=== PATIENT | female | born 1990 | race Caucasian/White ===

== ENCOUNTER 2017-08-30 11:28 | Inpatient (IN) | payer BC ==
[2017-08-31] MEDS ORDERED: Cervidil 10 MG VAG SCH (00:01)
[2017-08-31] MEDS ORDERED: BRETHINE 1 MG/ML SQ PRN (00:01)
[2017-08-31] MEDS ORDERED: Lactated Ringers 1,000 ML IV SCH (02:00)
[2017-08-31] MEDS: Cervidil 10 MG VAG SCH ×2 (02:18→04:17)
[2017-08-31] MEDS ORDERED: TYLENOL EXTRA STRENGTH 500 MG PO PRN (05:08)
[2017-08-31] MEDS ORDERED: PITOCIN 30 UNITS/ LR 500 ML 500 ML IV SCH (05:30)
[2017-08-31 06:30] LABS: BASOPHIL % 0.2 % (0.0-0.4); Basophil (Absolute #) 0.02 (0-0.4); Eosinophil (Absolute #) 0.11 (0-0.5); Granulocyte Absolute (ANC) 7.38 (1.4-6.9); Granulocytes % 68.1 % (36.0-66.0); Hematocrit 39.4 % (35-47); Hemoglobin 12.8 gm/dl (12.0-16.0); Lymphocyte (Absolute #) 2.49 (1.0-4.6); Mean Cell Volume 92.7 fl (78-100); Mean Corpuscular Hemoglobin 30.1 pg (26-32); Mean Corpuscular Hgb Concent. 32.5 g/dl (32-36); Mean Platelet Volume 12.4 fl (6-9.5); Monocyte (Absolute #) 0.84 (0.0-1.3); Monocytes % 7.7 % (0.0-12.0); Platelet Count 216 K/mm3 (150-450); Red Blood Count 4.25 M/mm3 (4.1-5.4); Red Cell Distribution Width 13.3 % (11.5-14.0); White Blood Count 10.8 K/mm3 (4.0-10.5)
[2017-08-31 06:47] LABS: Amphetamine,Urine NEGATIVE (NEGATIVE); Barbiturate,Urine NEGATIVE (NEGATIVE); Benzodiazepine,Urine NEGATIVE (NEGATIVE); Cocaine,Urine NEGATIVE (NEGATIVE); Methadone,Urine NEGATIVE (NEGATIVE); Opiate,Urine NEGATIVE (NEGATIVE); PCP,Urine NEGATIVE (NEGATIVE); THC,Urine NEGATIVE (NEGATIVE)
[2017-08-31 09:44] LABS: Appearance CLOUDY (CLEAR); Bacteria MODERATE /HPF (NEGATIVE); Bilirubin NEGATIVE (NEGATIVE); Blood NEGATIVE Ery/ul (0-5); Epithelial Cells FEW /HPF (FEW); Glucose NEGATIVE (NEGATIVE); Ketones NEGATIVE (NEGATIVE); Leukocyte Esterase 2+ (NEGATIVE); Nitrite NEGATIVE (NEGATIVE); Protein,Urine Dip NEGATIVE (Negative); RBC 0-2 /HPF (0-2); Urobilinogen NORMAL mg/dL (0-1)
[2017-08-31] MEDS ORDERED: NON-FORMULARY ITEM (Prenatal Vits W-Ca,Fe,Fa(<1mg) [Prenatal] 1 EACH) PO SCH (10:00)
[2017-08-31] MEDS ORDERED: ACYCLOVIR 400 MG PO SCH (10:00)
[2017-08-31] MEDS: Lactated Ringers 1,000 ML IV SCH ×2 (15:34→23:17)
[2017-08-31] MEDS: ZOVIRAX 200 MG PO SCH ×2 (20:36→20:38)
[2017-08-31] MEDS ORDERED: Lactated Ringers 1,000 ML IV ONE (20:38)
[2017-08-31] MEDS ORDERED: Ephedrine Sulfate 50 MG/ML IV PRN (20:38)
[2017-08-31] MEDS: OB EPIDURAL NAROPIN/SUFENTANIL IN NACL EPIDURAL PRN (21:55)
[2017-09-01] MEDS: Lactated Ringers 1,000 ML IV SCH ×2 (02:00→10:03)
[2017-09-01 05:17] VITALS: O2SAT 96
[2017-09-01] MEDS: OB EPIDURAL NAROPIN/SUFENTANIL IN NACL EPIDURAL PRN (05:51)
[2017-09-01] MEDS ORDERED: XYLOCAINE 1% HCL 20 ML MDV IJ PRN (07:35)
[2017-09-01] MEDS ORDERED: NORCO 5/325 MG PO PRN (11:21)
[2017-09-01] MEDS ORDERED: TUCKS TP PRN (11:21)
[2017-09-01] MEDS ORDERED: Dermoplast Spray TP PRN (11:21)
[2017-09-01] MEDS: ZOVIRAX 200 MG PO SCH (11:27)
[2017-09-01] MEDS: THERAGRAN MULTIVITAMIN PO SCH (11:27)
[2017-09-01] MEDS: KEFLEX 500 MG PO SCH ×2 (13:12→17:26)
[2017-09-01] MEDS ORDERED: ROCEPHIN 1 Gm-D5w 50 ml Bag** 1 G/50 ML IVPB IV ONE (15:30)
[2017-09-02] MEDS: KEFLEX 500 MG PO SCH ×5 (00:25→21:16)
[2017-09-02] MEDS: Colace 100 MG PO SCH ×3 (00:25→21:16)
[2017-09-02] MEDS: MOTRIN 400 MG PO PRN ×3 (04:28→21:16)
[2017-09-02 05:39] LABS: BASOPHIL % 0.1 % (0.0-0.4); Basophil (Absolute #) 0.01 (0-0.4); Eosinophil % 0.9 % (0.00-5.0); Eosinophil (Absolute #) 0.12 (0-0.5); Granulocyte Absolute (ANC) 9.96 (1.4-6.9); Granulocytes % 70.5 % (36.0-66.0); Hemoglobin 9.4 gm/dl (12.0-16.0); Lymphocyte (Absolute #) 3.03 (1.0-4.6); Lymphocytes % 21.5 % (24.0-44.0); Mean Cell Volume 93.2 fl (78-100); Mean Corpuscular Hemoglobin 30.2 pg (26-32); Mean Corpuscular Hgb Concent. 32.4 g/dl (32-36); Mean Platelet Volume 11.8 fl (6-9.5); Monocyte (Absolute #) 0.98 (0.0-1.3); Platelet Count 168 K/mm3 (150-450); Red Blood Count 3.11 M/mm3 (4.1-5.4); Red Cell Distribution Width 13.2 % (11.5-14.0); White Blood Count 14.1 K/mm3 (4.0-10.5)
[2017-09-02] MEDS: FERREX 150 PO SCH (09:50)
[2017-09-02] MEDS: THERAGRAN MULTIVITAMIN PO SCH (09:50)
[2017-09-02] MEDS: ZOVIRAX 200 MG PO SCH ×2 (09:52→22:00)
[2017-09-03] MEDS: MOTRIN 400 MG PO PRN (06:10)
[2017-09-03] MEDS: KEFLEX 500 MG PO SCH (10:24)
[2017-09-03] MEDS: THERAGRAN MULTIVITAMIN PO SCH (10:24)
[2017-09-03] MEDS: ZOVIRAX 200 MG PO SCH (10:24)
[2017-09-03] MEDS: FERREX 150 PO SCH (10:26)
[2017-09-03] MEDS: Colace 100 MG PO SCH (10:26)
[2017-09-03 11:47] VITALS: BP 132/87; PULSE 93
== END 2017-09-03 11:20 | disposition home or self-care (01) | DRG 775 ==
LOC: OB 08-31 00:08 → OBSVTOIN 08-31 20:22 → MERGE 08-31 20:22
PROVIDERS: ADMIT Family Medicine; ATTEND Family Medicine
PROC: 10E0XZZ Delivery of Products of Conception, External Approach (ICD-10-PCS; principal; 2017-09-01)
DX: O24.429 Gestational diabetes mellitus in childbirth, unspecified control (principal); N39.0 Urinary tract infection, site not specified; Z3A.39 39 weeks gestation of pregnancy; Z37.0 Single live birth
CPT/HCPCS: 36415; 80307; 81000; 85025; 87086; G0378; J0696; J2590; J2795; A9270-GY

== ENCOUNTER 2018-04-28 10:18 | Emergency (ER) | payer BC, OTHER ==
[2018-04-28] MEDS ORDERED: TYLENOL 325 MG PO ONE (11:07)
[2018-04-28] MEDS ORDERED: BACIGUENT PACKET TP ONE (11:07)
[2018-04-28] MEDS ORDERED: TYLENOL 325 MG ONE (11:21)
[2018-04-28] MEDS ORDERED: BACIGUENT PACKET ONE (11:21)
--- NOTE | 2018-04-28 11:30 | ERPHSYRPT ---
- History of Present Illness Time Seen by Provider: 04/28/18 11:07 Source: patient Exam Limitations: no limitations Patient Subjective Stated Complaint: patient hit her head on large deadbolt of medicne cabinet at work Triage Nursing Assessment: pt alert nad oriented x3, able to ambulatee by self, has swollen area to top of head with small scrape on top, patient reports nausea nd dizzyness and states things feel fuzzy, no other abnomralities noted skin warm dry and itnact Physician History: 27-year-old white female with history of anxiety Patient arrives with complaint of photophobia, dizzy, nausea, head pain after striking her head at work she states she has a small laceration/abrasion to the top of her head.. Past medical history includes anxiety patient possibly with a detached retina in the past. Past surgical history is negative. Tetanus is up-to-date. Social history patient denies tobacco alcohol or illicit drug use. Timing/Duration: today (this morning around 7 AM) Severity: moderate Modifying Factors: Improves With: acetaminophen (Tylenol at 6 AM). Worsens With : eating, immobilization, medication, movement, rest, ibuprofen, nothing Associated Symptoms: nausea, headaches, other (dizziness and photophobia), No vomiting, No abdominal pain, No shortness of breath, No heartburn, No diaphoresis, No cough, No chills, No chest pain, No fever, No loss of appetite, No malaise, No rash, No syncope, No seizure, No weakness Allergies/Adverse Reactions: No Known Drug Allergies Allergy (Verified 09/01/17 16:35) Home Medications: Norgestimate-Ethinyl Estradiol [Tri-Sprintec] 1 each PO DAILY 11/20/12 [History] Vits W-Ca,Fe,FA(<1Mg) [] 1 each PO DAILY 08/16/17 [History] Acyclovir 400 mg PO BID 08/31/17 [History] Hx Tetanus, Diphtheria Vaccination/Date Given: Yes Hx Influenza Vaccination/Date Given: No Hx Pneumococcal Vaccination/Date Given: No Immunizations Up to Date: Yes - Review of Systems Constitutional: Other (scalp pain), No Fever, No Chills Eyes: Photophobia, Vision Changes (blurry vision), No Eye Pain, No Eye Redness, No Itchy, No Tearing, No Double Vision, No Foreign Body Sensation Ears, Nose, & Throat: No Symptoms Respiratory: No Cough, No Dyspnea Cardiac: No Chest Pain, No Edema, No Syncope Abdominal/Gastrointestinal: Nausea, No Abdominal Pain, No Vomiting, No Diarrhea Genitourinary Symptoms: No Dysuria Musculoskeletal: No Back Pain, No Neck Pain Skin: Other (small abrasion right parietal region) Neurological: Dizziness, Headache, No Focal Weakness, No Gait Changes, No Irritability, No Lethargy, No Paralysis, No Parasthesia, No Seizure, No Sensory Changes, No Speech Changes, No Tics, No Tremors, No Vertigo Psychological: No Symptoms Endocrine: No Symptoms All Other Systems: Reviewed and Negative - Past Medical History Pertinent Past Medical History: Yes Neurological History: No Pertinent History ENT History: No Pertinent History Cardiac History: No Pertinent History Respiratory History: No Pertinent History Endocrine Medical History: No Pertinent History Musculoskeletal History: No Pertinent History GI Medical History: No Pertinent History History: No Pertinent History Psycho-Social History: Anxiety Female Reproductive Disorders: No Pertinent History - Past Surgical History Past Surgical History: No - Social History Smoking Status: Never smoker Exposure to second hand smoke: No Drug Use: none Patient Lives Alone: No - Female History Hx Now: No - Nursing Vital Signs Nursing Vital Signs: Initial Vital Signs Temperature 98.4 F 04/28/18 10:19 Pulse Rate 77 04/28/18 10:19 Respiratory Rate 18 04/28/18 10:19 Blood Pressure 155/94 04/28/18 10:19 O2 Sat by Pulse Oximetry 99 04/28/18 10:19 Pain Scale Pain Intensity 6 - Physical Exam General Appearance: mild distress, alert, other (1 cm abrasion scalp right parietal region, top of head tender with palpation) Eye Exam: PERRL/EOMI, eyes nml inspection Ears, Nose, Throat Exam: normal ENT inspection, TMs normal, pharynx normal, moist mucous membranes Neck Exam: normal inspection, non-tender, supple, full range of motion Respiratory Exam: normal breath sounds, lungs clear, No respiratory distress Cardiovascular Exam: regular rate/rhythm, normal heart sounds, normal peripheral pulses, capillary refill <2 sec Gastrointestinal/Abdomen Exam: soft, normal bowel sounds, No tenderness, No mass Back Exam: normal inspection, normal range of motion, No CVA tenderness, No vertebral tenderness Extremity Exam: normal inspection, normal range of motion, pelvis stable Neurologic Exam: alert, oriented x 3, 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, 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, normal mood/affect, nml cerebellar function, nml station & gait, sensation nml, No motor deficits Skin Exam: normal color, warm, dry, other (1 cm scalp abrasionright parietal region), No rash SpO2 Interpretation: normal (99%) SpO2: 99 - Course Nursing assessment & vital signs reviewed: Yes - CT Exams Head CT Interpretation: Discussed w/radiologist (head CT: Normal head CT without contrast exam) Ordered Tests: Active Orders 24 hr Category Date Time Status Visual Acuity STAT Care 04/28/18 12:12 Active Wound Care STAT Care 04/28/18 11:07 Active HEAD WITHOUT CONTRAST [CT] Stat Exams 04/28/18 11:06 Completed Medication Summary Discontinued Medications Generic Name Dose Route Start Last Admin Trade Name Freq PRN Reason Stop Dose Admin Acetaminophen 650 mg 04/28/18 11:07 04/28/18 11:50 Tylenol 325 Mg PO 04/28/18 11:08 650 mg STAT ONE Administration Acetaminophen Confirm 04/28/18 11:21 Tylenol 325 Mg Administered 04/28/18 11:22 Dose 650 mg .ROUTE .STK-MED ONE Bacitracin Zinc 0.9 gm 04/28/18 11:07 04/28/18 11:50 Baciguent Packet TP 04/28/18 11:08 0.9 gm STAT ONE Administration Bacitracin Zinc Confirm 04/28/18 11:21 Baciguent Packet Administered 04/28/18 11:22 Dose 1 gm .ROUTE .STK-MED ONE - Progress Progress: improved Progress Note: 04/28/18 12:34 27-year-old white female arrives with complaint of pain on her right side of her head, photophobia after striking her head at work this morning. Patient without loss of consciousness patient with normal neurologic examination patient with normal head CT. She had a small scalp abrasion which was cleaned and bacitracin applied by nurse. Patient was given Tylenol for headache, she states she has minimal improvement however I've offered her Buckeye for pain she really doesn't want this. Patient does have a history of a retinal detachment on the right. She has no signs of hyphema fundi are easily visualized eyes PERRLA EOMI. Will have nurse is due vision exam. Will plan to send patient home rest Tylenol pain follow-up with her company . she is to schedule an appointment tomorrow. Patient will also need to follow-up with her associate creative director in view of her history of retinal detachment. - Departure Time of Disposition: 12:37 Departure Disposition: Home Clinical Impression: History of retinal detachment Head contusion Qualifiers: Encounter type: initial encounter Contusion of head detail: unspecified part of head Qualified Code(s): S00.93XA - Contusion of unspecified part of head, initial encounter Scalp abrasion Qualifiers: Encounter type: initial encounter Qualified Code(s): S00.01XA - Abrasion of scalp, initial encounter Condition: Fair Critical Care Time: No Referrals: MACK APPIAH [Primary Care Provider] - Instructions: Closed Head Injury (DC) Additional Instructions: Return home, rest, dark quiet room. Tylenol every 4 hours as needed for pain. Bacitracin to abrasion until healed. Follow-up with your company physician. Follow-up with your associate creative director. Return for acute distress or for severe symptoms.
--- NOTE | 2018-04-28 12:00 | XRAY ---
Indication: Headache and dizziness following trauma. Multiple contiguous axial images obtained through the head without contrast. Comparison: None Normal appearing brain parenchyma, ventricles, and bony calvarium. Visualized paranasal sinuses and mastoid air cells are clear. Impression: Normal CT head without contrast exam. CT DI 51.85
[2018-04-28 12:04] VITALS: BP 119/78; PULSE 72
[2018-04-28 12:12] VITALS: O2SAT 99
== END 2018-04-28 13:00 | disposition home or self-care (01) ==
LOC: ED 10:18
DX: H33.21 Serous retinal detachment, right eye (principal); S00.93XA Contusion of unspecified part of head, initial encounter; S00.01XA Abrasion of scalp, initial encounter; Z79.899 Other long term (current) drug therapy; W22.09XA Striking against other stationary object, initial encounter; F41.9 Anxiety disorder, unspecified
CPT/HCPCS: 70450; 99283; A9270-GY

== ENCOUNTER 2019-09-18 06:52 | Day surgery (SDC) | payer BC ==
[2019-09-18] MEDS ORDERED: PROVAYBLUE IV ONE (06:53)
[2019-09-18] MEDS ORDERED: Lactated Ringers 1,000 ML IV ONE (06:54)
[2019-09-18] MEDS ORDERED: KEFZOL 1 GM/50 ML PREMIX** 1 GM/50 ML IVPB IV ONE (07:11)
[2019-09-18] MEDS ORDERED: KEFZOL 1 GM/50 ML PREMIX** 1 GM/50 ML IVPB IV SCH (07:15)
[2019-09-18] MEDS ORDERED: Lactated Ringers 1,000 ML IV SCH (07:30)
[2019-09-18] MEDS ORDERED: TORAdol 30 mg Injection ONE (09:19)
[2019-09-18] MEDS ORDERED: Zemuron 100 MG/10 ML ONE (09:19)
[2019-09-18] MEDS ORDERED: SUBLIMAZE 250 MCG/5 ML ONE (09:19)
[2019-09-18] MEDS ORDERED: Decadron 4 MG INJ ONE (09:19)
[2019-09-18] MEDS ORDERED: Zofran 4 MG/2 ML VIAL ONE (09:19)
[2019-09-18] MEDS ORDERED: DIPRIVAN 200 MG/20 ML IV ONE (09:19)
[2019-09-18] MEDS ORDERED: Xylocaine-Mpf 2% 5 Ml Vial ONE (09:19)
[2019-09-18] MEDS ORDERED: BRIDION 200MG/2ML IV ONE (09:19)
[2019-09-18] MEDS ORDERED: Sensorcaine 0.25% 10 ML ONE (11:37)
[2019-09-18 12:09] VITALS: O2SAT 100
[2019-09-18 12:21] VITALS: BP 137/80; PULSE 80
--- NOTE | 2019-09-19 08:53 | OP ---
SURGERY DATE/TIME: 09/18/2019 0931 PREOPERATIVE DIAGNOSES: 1) Clinical endometriosis. 2) Menorrhagia. POSTOPERATIVE DIAGNOSES: 1) Endometriosis. 2) Menorrhagia. 3) Cervical stenosis. 4) Patent left tube. PROCEDURE: Hysteroscopy D&C, diagnostic laparoscopy with fulguration of endometriosis and chromopertubation. SURGEON: Lauri Man D.O. RUBBER CHEMIST: Allen Celeste rn surgical. ANESTHESIA: General. ESTIMATED BLOOD LOSS: Minimal. COMPLICATIONS: None. INDICATIONS: The risks, benefits, indications and alternatives of the procedure were reviewed with the patient prior to the procedure. The patient understood the risk of infection, bleeding, bowel injury, bladder injury, ureteral injury, incisional hernia associated with the surgery and desires to have this surgery as a possible need to alleviate her current medical condition. DESCRIPTION OF PROCEDURE AND FINDINGS: At this point the patient is taken to the operating room, given general sedation, placed in dorsal lithotomy position. Prepped and draped in the usual sterile fashion. From this point a weighted speculum is then placed in the patient's vagina and the anterior lip of the cervix is grasped with a single tooth tenaculum. Endocervical dilators were advanced to the endocervical canal as a means to dilate the cervix. However there appeared to be significant endocervical stenosis where the endocervical region was difficult to dilate and required more than the usual time to dilate her endocervical region. After dilation the hysteroscope was then placed into the endocervical canal where visualization of the endometrial cavity appeared to be within normal limits with no gross abnormalities. From this point a curette was then placed into the fundus of the uterus where curettage was performed in all quadrants of the uterus retrieving a mild to moderate amount of tissue. Hemostasis was obtained at this point. From this point a uterine manipulator was then inserted through the endocervical canal as a means to manipulate the uterus and as a means for chromopertubation. From this point attention was then turned to the patient's abdomen where 5 mm incision was made just inferior to the umbilicus and the umbilical fold where a 5 mm incision was made and a 5 mm trocar and sleeve were advanced under direct visualization where pneumoperitoneum was obtained with 4 liters of CO2 gas. An additional incision was made in the left middle quadrant region where a 5 mm incision was made and a 5 mm trocar and sleeve were advanced under direct visualization. A third incision is made approximately 2 cm above the symphysis pubis where a 5 mm incision was made and a 5 mm trocar and sleeve were advanced under direct visualization as well. Visualization of the pelvic cavity appeared to have a moderate amount of endometriotic implants located in the posterior cul-de-sac as well as the right and left adnexa located along the mesosalpinx as well as the round ligament on the left side and underneath the surface of her uterus especially the left side. From this point the bipolar set up mechanic coil winding machines was then used and coagulated all the visible implants that were noted and was done so without complication where there was no bleeding that was noted. There were several endometriotic implants located again mentioned on the right adnexa where the bipolar was used to coagulate the lesions that were noted on the right adnexa. However the fimbriated ends of the tube bilaterally appeared to be patent. There did not appear to be any adhesions located on the distal end of the fimbria. From this point initially a 10 cc syringe was used where the diluted methylene blue was inserted in through the uterine manipulator where visualization showed extravasation from her left tube. However, there was no visualization of extravasation from her right tube regarding the methylene blue. After a second 10 cc syringe was used again there was no visualization or extravasation on her right tube. However, there appeared to be patent left tube where more extravasation occurred. A survey of the patient's abdominal region appeared to be within normal limits with no endometriotic implants that were noted. There were no adhesions located in the pelvic region. Extensive irrigation was made and at this time after suction irrigation all instruments were then removed from the patient's abdominal region and the incision is closed with 4-0 Monocryl suture and was done so without complication with subsequent Dermabond on the surface of the incisions. The patient was then taken out of dorsal lithotomy position, was taken out of anesthesia and was then taken to the recovery room in stable condition. All instruments and laps were accounted for x2.
== END 2019-09-18 11:00 | disposition home or self-care (01) ==
LOC: SDC 06:52
PROVIDERS: ATTEND Obstetrics & Gynecology
DX: N80.0 Endometriosis of uterus (principal); N92.0 Excessive and frequent menstruation with regular cycle; N88.2 Stricture and stenosis of cervix uteri
CPT/HCPCS: 84703; J0690; J1100; J1885; J2405; J2704; J3010; Q9968

== ENCOUNTER 2021-03-24 06:07 | Day surgery (SDC) | payer BC ==
[2021-03-24] MEDS ORDERED: CEFAZOLIN 2 GM-D5W BAG** 2 GM/50 ML ML IV SCH (07:00)
[2021-03-24] MEDS ORDERED: Lactated Ringers 1,000 ML IV SCH (07:00)
[2021-03-24] MEDS ORDERED: SUBLIMAZE 100 MCG/2 ML ONE ×2 (08:10→09:31)
[2021-03-24] MEDS ORDERED: DIPRIVAN 200 MG/20 ML IV ONE (08:10)
[2021-03-24] MEDS ORDERED: Versed 2 MG/2 ML Injection ONE (08:11)
[2021-03-24 08:32] LABS: ABO TYPING O; Antibody Screen NEGATIVE (NEGATIVE); RH TYPING POSITIVE
[2021-03-24] MEDS ORDERED: Decadron 4 MG INJ ONE (08:56)
[2021-03-24] MEDS ORDERED: Zofran 4 MG/2 ML VIAL ONE (08:56)
[2021-03-24] MEDS ORDERED: Lactated Ringers 1,000 ML IV ONE (09:03)
[2021-03-24] MEDS ORDERED: TORAdol 30 mg Injection ONE (09:07)
[2021-03-24 10:47] VITALS: BP 142/73; PULSE 71; O2SAT 100
--- NOTE | 2021-03-25 13:10 | OP ---
SURGERY DATE/TIME: 03/24/2021 0849 PREOPERATIVE DIAGNOSIS: Missed at approximately 6 weeks gestation. POSTOPERATIVE DIAGNOSIS: Missed at approximately 6 weeks gestation. PROCEDURE: D&C with suction. SURGEON: Lauri Man D.O. SAP ENTERPRISE PORTAL CONSULTANT: Sahara Garcia surgical specialist. ANESTHESIA: General. ESTIMATED BLOOD LOSS: Minimal. COMPLICATIONS: None. INDICATIONS: The risks, benefits, indications and alternatives of the procedure were reviewed with the patient prior to procedure. The patient understood the risk of infection, bleeding, bowel injury, bladder injury, uterine perforation, pelvic infection associated with the surgery and desires to have this procedure as a possible means to alleviate her current medical condition. DESCRIPTION OF PROCEDURE AND FINDINGS: At this time, the patient is taken to the operating room, given general sedation, placed in the dorsal lithotomy position, prepped and draped in the usual sterile fashion. A weighted speculum is then placed in the patient's vagina and the anterior lip of the cervix is grasped with a single tooth tenaculum. Endocervical dilators were advanced through the endocervical canal as a means to dilate the cervix and a #7 curved suction Vacurette was then placed into the fundus of the uterus where the machine was turned on for suctioning and complete suction was taken place retrieving a moderate amount of tissue. At this point, the suction was then removed and the curette was then placed in the fundus of the uterus and curettage was subsequently performed in all quadrants of the uterus retrieving the remaining amount of tissue. From this point, hemostasis was obtained. From this point, all instruments were removed from the patient's vaginal region. The patient was then taken out of the dorsal lithotomy position, was taken out of anesthesia and was then taken to the recovery room in stable condition. All instruments and laps were accounted for x2.
== END 2021-03-24 10:54 | disposition home or self-care (01) ==
LOC: SDC 06:07
PROVIDERS: ATTEND Obstetrics & Gynecology
DX: O02.1 Missed abortion (principal)
CPT/HCPCS: 36415; 86850; 86900; 86901; J0690; J1100; J1885; J2250; J2405; J2704; J3010

== ENCOUNTER 2022-02-15 18:48 | Emergency (ER) | payer BC ==
[2022-02-15] MEDS ORDERED: MORPHINE SULFATE 2 MG INJ IV ONE (20:21)
[2022-02-15] MEDS ORDERED: Zofran 4 MG/2 ML VIAL IV ONE (20:21)
--- NOTE | 2022-02-15 20:22 | ERPHSYRPT ---
- History of Present Illness Time Seen by Provider: 02/15/22 20:30 Historian: patient Exam Limitations: no limitations Physician History: Patient is a 31-year-old female presents to emergency department for evaluation of right sided pelvic pain. Patient learned that she was 4 days ago. Today patient experienced right pelvic/lower quadrant pain. No trauma. No fever. No vaginal discharge. Pain is constant. Patient denies history of the same. Patient voices no other complaints or concerns at this time. Portions of this note were created with voice recognition technology. There may be grammatical, spelling, punctuation or sound alike errors Timing/Duration: today Activities at Onset: none Quality: aching Abdominal Pain Onset Location: other (Right pelvis right lower quadrant) Pain Radiation: other (Patient states the pain feels as though it is radiating into her leg.) Severity of Pain-Max: moderate Severity of Pain-Current: mild Modifying Factors: Improves With: nothing Associated Symptoms: denies symptoms Previous symptoms: no prior history Allergies/Adverse Reactions: No Known Drug Allergies Allergy (Verified 09/18/19 07:03) Hx Tetanus, Diphtheria Vaccination/Date Given: Yes Hx Influenza Vaccination/Date Given: No Hx Pneumococcal Vaccination/Date Given: No - Review of Systems Constitutional: No Symptoms, No Fever, No Chills Eyes: No Symptoms Ears, Nose, & Throat: No Symptoms Respiratory: No Symptoms, No Cough, No Dyspnea Cardiac: No Symptoms, No Chest Pain, No Edema, No Syncope Abdominal/Gastrointestinal: No Symptoms, No Abdominal Pain, No Nausea, No Vomiting, No Diarrhea Genitourinary Symptoms: No Symptoms, No Dysuria Musculoskeletal: No Symptoms, No Back Pain, No Neck Pain Skin: No Symptoms, No Rash Neurological: No Symptoms, No Dizziness, No Focal Weakness, No Sensory Changes Psychological: No Symptoms Endocrine: No Symptoms Hematologic/Lymphatic: No Symptoms Immunological/Allergic: No Symptoms All Other Systems: Reviewed and Negative - Past Medical History Pertinent Past Medical History: Yes Neurological History: Migraines ENT History: No Pertinent History Cardiac History: No Pertinent History Respiratory History: No Pertinent History Endocrine Medical History: No Pertinent History Musculoskeletal History: No Pertinent History GI Medical History: No Pertinent History History: No Pertinent History Psycho-Social History: Other Female Reproductive Disorders: Other Other Medical History: moods swings from PCOS - Past Surgical History Past Surgical History: Yes Neuro Surgical History: No Pertinent History Cardiac: No Pertinent History Respiratory: No Pertinent History Gastrointestinal: Other Genitourinary: No Pertinent History Musculoskeletal: No Pertinent History Female Surgical History: No Pertinent History Other Surgical History: laprascopy for endometriosis.x2 colonoscopy - Social History Smoking Status: Never smoker Exposure to second hand smoke: Yes Drug Use: none Patient Lives Alone: No - Nursing Vital Signs Nursing Vital Signs: Initial Vital Signs Temperature 97.8 F 02/15/22 20:17 Pulse Rate 116 H 02/15/22 20:17 Respiratory Rate 18 02/15/22 20:17 Blood Pressure 137/95 02/15/22 20:17 O2 Sat by Pulse Oximetry 97 02/15/22 20:17 Pain Scale Pain Intensity 4 - Physical Exam General Appearance: no apparent distress, alert Eye Exam: PERRL/EOMI, eyes nml inspection Ears, Nose, Throat Exam: normal ENT inspection, TMs normal, pharynx normal, moist mucous membranes Neck Exam: normal inspection, non-tender, supple, full range of motion Respiratory Exam: normal breath sounds, lungs clear, airway intact, No chest tenderness, No respiratory distress Cardiovascular Exam: regular rate/rhythm, normal heart sounds, normal peripheral pulses Gastrointestinal/Abdomen Exam: soft, No tenderness, No mass Back Exam: normal inspection, normal range of motion, No CVA tenderness, No vertebral tenderness Extremity Exam: normal inspection, normal range of motion, pelvis stable Neurologic Exam: alert, oriented x 3, cooperative, normal mood/affect, nml cerebellar function, sensation nml, No motor deficits Skin Exam: normal color, warm, dry SpO2 Interpretation: normal SpO2: 97 O2 Delivery: Room Air - Course Nursing assessment & vital signs reviewed: Yes - CT Exams Abdomen/Pelvis CT Interpretation: Tele-radiologist Report (Moderate retained feces in the cecum with mild to moderate retained feces in the transverse colon and right colon. Shotty bilateral inguinal lymph nodes right greater than left. 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 Gestational age is 2 weeks 3 days. Beta quant to 60. LMP is 01/29/2022. Uterus is 4.7 mm x 4.6 mm x 5.1 mm. Right ovary is 4.4 mm x 2.7 mm x 3.1 mm left ovary 3.8 mm x 2.9 mm x 3.2 mm no extrauterine or intrauterine seen. Cul-de-sac fluid seen. No rig) Ordered Tests: Active Orders 24 hr Category Date Time Status IV Insertion STAT Care 02/15/22 20:21 Active ABDOMEN AND PELVIS W/0 CONTRAS [CT] Stat Exams 02/15/22 22:51 Taken OB <14 WKS 1ST GESTATION [US] Stat Exams 02/15/22 20:46 Taken CBC W DIFF Stat Lab 02/15/22 20:21 Completed CMP Stat Lab 02/15/22 20:21 Completed CULTURE,URINE Stat Lab 02/15/22 20:35 Received HCG, Quantitative (Inhouse) Stat Lab 02/15/22 21:01 Completed HCG,QUALITATIVE URINE Stat Lab 02/15/22 20:35 Completed LIPASE Stat Lab 02/15/22 20:21 Completed TROPONIN Q4H Lab 02/15/22 20:30 Completed UA W/RFX UR CULTURE Stat Lab 02/15/22 20:35 Completed Wet Prep Stat Lab 02/15/22 Ordered Medication Summary Generic Name Dose Route Start Last Admin Trade Name Freq PRN Reason Stop Dose Admin Sodium Chloride 1,000 mls @ 100 mls/hr 02/15/22 20:30 02/15/22 20:39 Sodium Chloride 0.9% 1000 Ml IV 03/17/22 20:29 100 mls/hr .Q10H GLORIA Administration Discontinued Medications Generic Name Dose Route Start Last Admin Trade Name Freq PRN Reason Stop Dose Admin Morphine Sulfate 2 mg 02/15/22 20:21 02/15/22 20:39 Morphine Sulfate 2 Mg/Ml Inj IV 02/15/22 20:22 2 mg STAT ONE Administration Morphine Sulfate Confirm 02/15/22 20:36 Morphine Sulfate 2 Mg/Ml Inj Administered 02/15/22 20:37 Dose 2 mg .ROUTE .STK-MED ONE Morphine Sulfate 4 mg 02/15/22 22:27 02/15/22 22:30 Morphine Sulfate 4 Mg/Ml Injection IV 02/15/22 22:28 4 mg STAT ONE Administration Morphine Sulfate Confirm 02/15/22 22:29 Morphine Sulfate 4 Mg/Ml Injection Administered 02/15/22 22:30 Dose 4 mg .ROUTE .STK-MED ONE Nitrofurantoin Macrocrystals 100 mg 02/15/22 22:37 02/15/22 22:55 Nitrofurantoin Macro 100 Mg Capsule PO 02/15/22 22:38 100 mg STAT ONE Administration Nitrofurantoin Macrocrystals Confirm 02/15/22 22:54 Nitrofurantoin Macro 100 Mg Capsule Administered 02/15/22 22:55 Dose 100 mg .ROUTE .STK-MED ONE Ondansetron HCl 4 mg 02/15/22 20:21 02/15/22 20:39 Ondansetron Hcl 4 Mg/2 Ml Vial IV 02/15/22 20:22 4 mg STAT ONE Administration Ondansetron HCl Confirm 02/15/22 20:36 Ondansetron Hcl 4 Mg/2 Ml Vial Administered 02/15/22 20:37 Dose 4 mg .ROUTE .STK-MED ONE Lab/Rad Data: Laboratory Result Diagrams 02/15/22 20:21 02/15/22 20:21 Laboratory Results 02/15/22 02/15/22 02/15/22 Range/Units 22:55 21:01 20:35 WBC (4.0-10.5) x10^3/uL RBC (4.1-5.4) x10^6/uL Hgb (12.0-16.0) g/dL Hct (35-47) % MCV (78-100) fL MCH (26-32) pg MCHC (32-36) g/dL RDW (11.5-14.0) % Plt Count (150-450) x10^3/uL MPV (7.5-11.0) fL Gran % (36.0-66.0) % Immature Gran % (Auto) (0.00-0.4) % Nucleat RBC Rel Count (0.00-0.1) % Eos # (Auto) (0-0.5) x10^3/uL Immature Gran # (Auto) (0.00-0.03) x10^3u/L Absolute Lymphs (auto) (1.0-4.6) x10^3/uL Absolute Monos (auto) (0.0-1.3) x10^3/uL Absolute Nucleated RBC (0.00-0.01) x10^3u/L Lymphocytes % (24.0-44.0) % Monocytes % (0.0-12.0) % Eosinophils % (0.00-5.0) % Basophils % (0.0-0.4) % Absolute Granulocytes (1.4-6.9) x10^3/uL Basophils # (0-0.4) x10^3/uL Sodium (137-145) mmol/L Potassium (3.5-5.1) mmol/L Chloride (98-107) mmol/L Carbon Dioxide (22-30) mmol/L Anion Gap (5-15) MEQ/L BUN (7-17) mg/dL Creatinine (0.52-1.04) mg/dL Estimated GFR ML/MIN Glucose (74-106) mg/dL Calcium (8.4-10.2) mg/dL Total Bilirubin (0.2-1.3) mg/dL AST (14-36) U/L ALT (0-35) U/L Alkaline Phosphatase (38-126) U/L Troponin I (0.000-0.034) ng/mL Serum Total Protein (6.3-8.2) g/dL Albumin (3.5-5.0) g/dL Lipase (23-300) U/L Beta HCG, Quant 260.46 mIU/ml Urine Color (Yellow) Urine Appearance (Clear) Urine pH (4.6-8.0) Ur Specific [place] (1.005-1.030) Urine Protein (Negative) Urine Glucose (UA) (Negative) mg/dL Urine Ketones (Negative) Urine Blood (Negative) Urine Nitrite (Negative) Urine Bilirubin (Negative) Urine Urobilinogen (0.2) mg/dL Ur Leukocyte Esterase (Negative) Urine Microscopic RBC (0-5) /HPF Urine Microscopic WBC (0-5) /HPF Ur Epithelial Cells (None Seen) /HPF Urine Bacteria (None Seen) /HPF Urine Culture Reflexed (NO) Urine HCG, Qual POSITIVE (Negative) ABO Group O Rh Factor POSITIVE Antibody Screen NEGATIVE (NEGATIVE) 02/15/22 02/15/22 02/15/22 Range/Units 20:35 20:30 20:21 WBC (4.0-10.5) x10^3/uL RBC (4.1-5.4) x10^6/uL Hgb (12.0-16.0) g/dL Hct (35-47) % MCV (78-100) fL MCH (26-32) pg MCHC (32-36) g/dL RDW (11.5-14.0) % Plt Count (150-450) x10^3/uL MPV (7.5-11.0) fL Gran % (36.0-66.0) % Immature Gran % (Auto) (0.00-0.4) % Nucleat RBC Rel Count (0.00-0.1) % Eos # (Auto) (0-0.5) x10^3/uL Immature Gran # (Auto) (0.00-0.03) x10^3u/L Absolute Lymphs (auto) (1.0-4.6) x10^3/uL Absolute Monos (auto) (0.0-1.3) x10^3/uL Absolute Nucleated RBC (0.00-0.01) x10^3u/L Lymphocytes % (24.0-44.0) % Monocytes % (0.0-12.0) % Eosinophils % (0.00-5.0) % Basophils % (0.0-0.4) % Absolute Granulocytes (1.4-6.9) x10^3/uL Basophils # (0-0.4) x10^3/uL Sodium 137 (137-145) mmol/L Potassium 3.7 (3.5-5.1) mmol/L Chloride 106 (98-107) mmol/L Carbon Dioxide 21 L (22-30) mmol/L Anion Gap 13.2 (5-15) MEQ/L BUN 8 (7-17) mg/dL Creatinine 0.73 (0.52-1.04) mg/dL Estimated GFR > 60.0 ML/MIN Glucose 134 H (74-106) mg/dL Calcium 8.8 (8.4-10.2) mg/dL Total Bilirubin 0.50 (0.2-1.3) mg/dL AST 25 (14-36) U/L ALT 14 (0-35) U/L Alkaline Phosphatase 88 (38-126) U/L Troponin I < 0.012 (0.000-0.034) ng/mL Serum Total Protein 7.8 (6.3-8.2) g/dL Albumin 4.5 (3.5-5.0) g/dL Lipase 82 (23-300) U/L Beta HCG, Quant mIU/ml Urine Color [place] A (Yellow) Urine Appearance Cloudy A (Clear) Urine pH 5.5 (4.6-8.0) Ur Specific [place] >=1.030 A (1.005-1.030) Urine Protein >=1000 A (Negative) Urine Glucose (UA) Negative (Negative) mg/dL Urine Ketones Negative (Negative) Urine Blood Moderate A (Negative) Urine Nitrite Positive A (Negative) Urine Bilirubin Small A (Negative) Urine Urobilinogen 1.0 A (0.2) mg/dL Ur Leukocyte Esterase Moderate A (Negative) Urine Microscopic RBC 3-5 (0-5) /HPF Urine Microscopic WBC 11-20 A (0-5) /HPF Ur Epithelial Cells Rare (None Seen) /HPF Urine Bacteria Rare A (None Seen) /HPF Urine Culture Reflexed YES (NO) Urine HCG, Qual (Negative) ABO Group Rh Factor Antibody Screen (NEGATIVE) 02/15/22 Range/Units 20:21 WBC 12.3 H (4.0-10.5) x10^3/uL RBC 4.07 L (4.1-5.4) x10^6/uL Hgb 12.5 (12.0-16.0) g/dL Hct 38.2 (35-47) % MCV 93.9 (78-100) fL MCH 30.7 (26-32) pg MCHC 32.7 (32-36) g/dL RDW 11.7 (11.5-14.0) % Plt Count 250 (150-450) x10^3/uL MPV 11.1 H (7.5-11.0) fL Gran % 80.5 H (36.0-66.0) % Immature Gran % (Auto) 0.3 (0.00-0.4) % Nucleat RBC Rel Count 0.0 (0.00-0.1) % Eos # (Auto) 0.05 (0-0.5) x10^3/uL Immature Gran # (Auto) 0.04 H (0.00-0.03) x10^3u/L Absolute Lymphs (auto) 1.62 (1.0-4.6) x10^3/uL Absolute Monos (auto) 0.66 (0.0-1.3) x10^3/uL Absolute Nucleated RBC 0.00 (0.00-0.01) x10^3u/L Lymphocytes % 13.2 L (24.0-44.0) % Monocytes % 5.4 (0.0-12.0) % Eosinophils % 0.4 (0.00-5.0) % Basophils % 0.2 (0.0-0.4) % Absolute Granulocytes 9.90 H (1.4-6.9) x10^3/uL Basophils # 0.03 (0-0.4) x10^3/uL Sodium (137-145) mmol/L Potassium (3.5-5.1) mmol/L Chloride (98-107) mmol/L Carbon Dioxide (22-30) mmol/L Anion Gap (5-15) MEQ/L BUN (7-17) mg/dL Creatinine (0.52-1.04) mg/dL Estimated GFR ML/MIN Glucose (74-106) mg/dL Calcium (8.4-10.2) mg/dL Total Bilirubin (0.2-1.3) mg/dL AST (14-36) U/L ALT (0-35) U/L Alkaline Phosphatase (38-126) U/L Troponin I (0.000-0.034) ng/mL Serum Total Protein (6.3-8.2) g/dL Albumin (3.5-5.0) g/dL Lipase (23-300) U/L Beta HCG, Quant mIU/ml Urine Color (Yellow) Urine Appearance (Clear) Urine pH (4.6-8.0) Ur Specific [place] (1.005-1.030) Urine Protein (Negative) Urine Glucose (UA) (Negative) mg/dL Urine Ketones (Negative) Urine Blood (Negative) Urine Nitrite (Negative) Urine Bilirubin (Negative) Urine Urobilinogen (0.2) mg/dL Ur Leukocyte Esterase (Negative) Urine Microscopic RBC (0-5) /HPF Urine Microscopic WBC (0-5) /HPF Ur Epithelial Cells (None Seen) /HPF Urine Bacteria (None Seen) /HPF Urine Culture Reflexed (NO) Urine HCG, Qual (Negative) ABO Group Rh Factor Antibody Screen (NEGATIVE) - Progress Progress: improved Progress Note: Case discussed with Dr. Man Patient has a urinary tract infection which is likely causing her pain. However we must rule out appendicitis and kidney ston e. Dr. Jacobo approved the CAT scan. He states the is early enough for the CAT scan will not affect the . Risks and benefits discussed with patient. She agrees to obtaining a CAT scan. CAT scan. 02/15/22 22:52 Patient a 31-year-old female presents to our ED for evaluation of right pelvic pain. Patient's complaint was acute. Complexity of pain was mild to moderate. Patient current status of if contributed to the symptoms. Tests ordered reviewed. Test results were olvera to medical decision making. Patient received morphine for pain control. Pelvic ultrasound performed to assess for ectopic . No ectopic observed. Urinalysis revealed a urinary tract infection. Patient received a dose of Macrobid in our ED. A prescription for the same was forwarded to patient's pharmacy. The case was discussed with Dr. Man. We decided to move forward with a CT scan to rule out kidney stone in light of urinary tract infection as well as appendicitis as patient's pain was to the right lower quadrant. Dr. Pedraza will approve the CAT scan. CAT scan negative for appendicitis cannot kidney stone. Plan of care discussed with patient. 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 Level of EM service provided was moderate to high. Complexity of the problem was moderate. Risk of complications/morbidity/m ortality was moderate. No critical care time. Patient served as independent historian. Portions of this note were created with voice recognition technology. There may be grammatical, spelling, punctuation or sound alike errors Discussed with Dr.: Bud Will see patient in: hospital (observation) Counseled pt/family regarding: lab results, diagnosis, need for follow-up, rad results - Departure Departure Disposition: Home Clinical Impression: UTI (urinary tract infection), Pelvic pain, Leukocytosis Condition: Stable Critical Care Time: No Referrals: SAMREEN BELL NP [Primary Care Provider] - Follow up/PCP as directed Additional Instructions: Discharge/Care Plan YOONVETO EMMANUELN was seen on 02/15/22 in the Emergency Room. The patient was counseled regarding Diagnosis,Lab results, Imaging studies, need for follow up and when to return to the Emergency Room. Prescriptions given: Discharge Note I have spoken with the patient and/or caregivers. I have explained the patient's condition, diagnosis and treatment plan based on the information available to me at this time. I have answered the patient's and/or caregiver's questions and addressed any concerns. The patient and/or caregivers have as good understanding of the patient's diagnosis, condition and treatment plan as can be expected at this point. The vital signs have been stable. The patient's condition is stable and appropriate for discharge from the emergency department. The patient will pursue further outpatient evaluation with the primary care physician or other designated or consulting physician as outlined in the discharge instructions. The patient and/or caregivers are agreeable to this plan of care and follow-up instructions have been explained in detail. The patient and/or caregivers have received these instruction. The patient/and or caregivers are aware that any significant change in condition or worsening of symptoms should prompt an immediate return to this or the closest emergency department or call 911. Prescriptions: Nitrofurantoin Macro 100 mg [Macrobid 100MG Capsule] 100 mg PO BID 7 Days #14 cap
[2022-02-15] MEDS ORDERED: Sodium Chloride 0.9% 1000 ML 1,000 ML IV SCH (20:30)
[2022-02-15] MEDS ORDERED: MORPHINE SULFATE 2 MG INJ ONE (20:36)
[2022-02-15] MEDS ORDERED: Sodium Chloride 0.9% 1000 ML 1,000 ML ONE (20:36)
[2022-02-15] MEDS ORDERED: Zofran 4 MG/2 ML VIAL ONE (20:36)
[2022-02-15 20:45] LABS: Basophil (Absolute #) 0.03 x10^3/uL (0-0.4); Eosinophil % 0.4 % (0.00-5.0); Eosinophil (Absolute #) 0.05 x10^3/uL (0-0.5); Hematocrit 38.2 % (35-47); Hemoglobin 12.5 g/dL (12.0-16.0); Lymphocyte (Absolute #) 1.62 x10^3/uL (1.0-4.6); Lymphocytes % 13.2 % (24.0-44.0); Mean Cell Volume 93.9 fL (78-100); Mean Corpuscular Hemoglobin 30.7 pg (26-32); Mean Corpuscular Hgb Concent. 32.7 g/dL (32-36); Mean Platelet Volume 11.1 fL (7.5-11.0); Monocyte (Absolute #) 0.66 x10^3/uL (0.0-1.3); Monocytes % 5.4 % (0.0-12.0); Neutrophil % 80.5 % (36.0-66.0); Platelet Count 250 x10^3/uL (150-450); Red Blood Count 4.07 x10^6/uL (4.1-5.4); Red Cell Distribution Width 11.7 % (11.5-14.0); White Blood Count 12.3 x10^3/uL (4.0-10.5)
[2022-02-15 20:50] LABS: Appearance Cloudy (Clear); Bilirubin Small (Negative); Blood Moderate (Negative); Glucose, Urine Negative (Negative); Ketones Negative (Negative); Leukocyte Esterase Moderate (Negative); Nitrite Positive (Negative); Ph 5.5 (4.6-8.0); Protein,Urine Dip >=1000 (Negative); Specific Gravity >=1.030 (1.005-1.030)
[2022-02-15 20:56] LABS: ALBUMIN 4.5 g/dL (3.5-5.0); ALKALINE PHOSPHATASE 88 U/L (38-126); ANION GAP 13.2 MEQ/L (5-15); BLOOD UREA NITROGEN 8 mg/dL (7-17); CHLORIDE 106 mmol/L (98-107); Calcium 8.8 mg/dL (8.4-10.2); Carbon Dioxide 21 mmol/L (22-30); Creatinine 1 0.73 mg/dL (0.52-1.04); EST GLOMERULAR FILTRATION RATE > 60.0 ML/MIN; Glucose 134 mg/dL (74-106); LIPASE 82 U/L (23-300); Potassium 3.7 mmol/L (3.5-5.1); SGOT/AST 25 U/L (14-36); SGPT/ALT 14 U/L (0-35); SODIUM 137 mmol/L (137-145); Total Protein 7.8 g/dL (6.3-8.2)
[2022-02-15 21:27] LABS: Bacteria Rare /HPF (None Seen); Epithelial Cells Rare /HPF (None Seen)
[2022-02-15 21:28] LABS: ADD URINE CULTURE? YES (NO)
[2022-02-15] MEDS ORDERED: MORPHINE SULFATE 4 MG INJ IV ONE (22:27)
[2022-02-15] MEDS ORDERED: MORPHINE SULFATE 4 MG INJ ONE (22:29)
[2022-02-15] MEDS ORDERED: Macrobid 100MG Capsule PO ONE (22:37)
[2022-02-15] MEDS ORDERED: Macrobid 100MG Capsule ONE (22:54)
[2022-02-15 23:45] LABS: ABO TYPING O; Antibody Screen NEGATIVE (NEGATIVE); RH TYPING POSITIVE
[2022-02-16 00:21] VITALS: BP 115/78; PULSE 90
[2022-02-16 00:48] VITALS: O2SAT 97
--- NOTE | 2022-02-16 08:42 | XRAY ---
Indication: Right pelvic pain. First trimester . Two-dimensional transvaginal early OB ultrasound performed. Comparison: None Uterus anteverted measuring 8.7 x 4.6 x 5.1 cm. No focal solid/cystic uterine mass. Endometrial stripe is thickened measuring 1.5 cm. No intrauterine gestational sac, pole, or heart tones. Right ovary measures 4.4 x 2.7 x 3.1 cm and the left measures 3.8 x 2.9 x 3.2 cm. Normal follicular cysts and perfusion bilaterally. Small cul-de-sac fluid possibly physiologic from rupture/leaking cyst. No suspicious adnexal mass or ectopic . Impression: Thickened endometrial stripe. Negative for intrauterine/ectopic . Cul-de-sac fluid, possibly physiologic. Comment: Preliminary report was given.
--- NOTE | 2022-02-16 08:46 | XRAY ---
Indication: Right abdomen/pelvic pain. UTI. Positive . Multiple contiguous axial images obtained through the abdomen and pelvis without contrast as ordered. Comparison: None Given positive test, CT was cleared by the ordering clinician Dr. Rodrigues. Lung bases clear. Heart not enlarged. Stomach is mildly distended with food/fluid. Noncontrasted stomach and bowel loops appear nonobstructed with normal appendix. Moderate diffuse scattered colonic fecal debris throughout including moderate rectal impaction. No free fluid/air. Remaining liver, gallbladder, pancreas, spleen, adrenal glands, kidneys, ureters, bladder, uterus, and aorta are unremarkable for noncontrast exam. Osseous structures intact. No ventral or inguinal hernias. Impression: Diffuse fecal stasis with rectal impaction. Remaining CT abdomen/pelvis without contrast exam is negative. Comment: Preliminary interpretation made by [facility]. No critical discrepancy.
== END 2022-02-16 00:48 | disposition home or self-care (01) ==
LOC: ED 18:48
DX: N39.0 Urinary tract infection, site not specified (principal); R10.2 Pelvic and perineal pain; D72.829 Elevated white blood cell count, unspecified
CPT/HCPCS: 36000; 36415; 74176; 76801; 80053; 81001; 81025; 83690; 84484; 84702; 85025; 86850; 86900; 86901; 87086; 96374; 96375; 96376; 99284; J2270; J2405; A9270-GY

== ENCOUNTER 2022-03-24 14:12 | Emergency (ER) | payer BC ==
[2022-03-24] MEDS ORDERED: ZOFRAN ODT 4 MG PO ONE (14:52)
[2022-03-24] MEDS ORDERED: ZOFRAN ODT 4 MG ONE (15:00)
--- NOTE | 2022-03-24 15:18 | ERPHSYRPT ---
- History of Present Illness Time Seen by Provider: 03/24/22 14:35 Source: patient Exam Limitations: no limitations Patient Subjective Stated Complaint: Patient with generalized complaints. She has not been feeling well since last Tuesday. 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 She has been nauseated. States she is very tired and is having trouble remembering things/concentrating; states she doesn't remember her drive home from the school the other day. Patient was started on Macrobid for UTI by Dr. Man and her last dose of this medication is tomorrow. Triage Nursing Assessment: Patient ambulated back to ER without difficulties. No SOB noted. She is alert and oriented. RODRIGUEZ WNL. No cough. No vomiting during assessment. Skin tone normal. Physician History: Patient is a 31-year-old female currently 9 weeks presents to our ED with multiple complaints. Patient has been experiencing headache nausea and difficulty with her memory. Symptoms have been ongoing for approximately 1 wee k. Patient is currently being treated for a urinary tract infection. She is on Macrobid. Patient has been taking Zofran for her nausea however this is not helped significantly per patient. Patient's last dose was at 8 AM this morning. Patient has also been experiencing some back and lower pelvic pain. No vaginal discharge. No foul odors. Symptoms are mild to moderate in intensity. No spec ific worsening improving factors. Patient voices no other complaints or concerns at this time. Portions of this note were created with voice recognition technology. There may be grammatical, spelling, punctuation or sound alike errors Timing/Duration: week(s) Severity: moderate Associated Symptoms: denies symptoms Allergies/Adverse Reactions: No Known Drug Allergies Allergy (Verified 03/24/22 14:25) Home Medications: Metformin HCl 500 mg [Glucophage 500 MG] 1 tab PO BID 03/24/22 [History] Ondansetron ODT 4 MG [Zofran Odt 4 mg] 1 tab PO Q8H PRN PRN 03/24/22 [History] Pnv No.95/Ferrous Fum/Folic AC [ Vitamin Tablet] 1 tab PO DAILY 03/24/22 [History] Hx Tetanus, Diphtheria Vaccination/Date Given: Yes Hx Influenza Vaccination/Date Given: Yes Hx Pneumococcal Vaccination/Date Given: No Immunizations Up to Date: Yes Travel Risk - International Travel Have you traveled outside of the country in past 3 weeks: No - Coronavirus Screening Are you exhibiting any of the following symptoms?: No Close contact with a COVID-19 positive Pt in past 14-21 Days: No - Vaccine Status Have you recieved a Covid-19 vaccination: Yes [employer]: Moderna - Vaccination Dates Date of 2cond Vaccination (if applicable): unknown - Review of Systems Constitutional: No Symptoms, No Fever, No Chills Eyes: No Symptoms Ears, Nose, & Throat: No Symptoms Respiratory: No Symptoms, No Cough, No Dyspnea Cardiac: No Symptoms, No Chest Pain, No Edema, No Syncope Abdominal/Gastrointestinal: No Symptoms, No Abdominal Pain, No Nausea, No Vomiting, No Diarrhea Genitourinary Symptoms: No Symptoms, No Dysuria Musculoskeletal: No Symptoms, No Back Pain, No Neck Pain Skin: No Symptoms, No Rash Neurological: No Symptoms, No Dizziness, No Focal Weakness, No Sensory Changes Psychological: No Symptoms Endocrine: No Symptoms Hematologic/Lymphatic: No Symptoms Immunological/Allergic: No Symptoms All Other Systems: Reviewed and Negative - Past Medical History Pertinent Past Medical History: Yes Neurological History: Migraines ENT History: No Pertinent History Cardiac History: No Pertinent History Respiratory History: No Pertinent History Endocrine Medical History: No Pertinent History Musculoskeletal History: No Pertinent History GI Medical History: No Pertinent History History: No Pertinent History Psycho-Social History: Attention Deficit Disorder, Other Female Reproductive Disorders: Endometriosis, Other Other Medical History: PCOS - Past Surgical History Past Surgical History: Yes Neuro Surgical History: No Pertinent History Cardiac: No Pertinent History Respiratory: No Pertinent History Gastrointestinal: Other Genitourinary: No Pertinent History Musculoskeletal: No Pertinent History Female Surgical History: No Pertinent History Other Surgical History: laprascopy for endometriosis x 2, colonoscopy - Social History Smoking Status: Never smoker Exposure to second hand smoke: No Drug Use: none Patient Lives Alone: No - Female History Hx Now: Yes Gestational Age: 9 weeks - Nursing Vital Signs Nursing Vital Signs: Initial Vital Signs Temperature 98.8 F 03/24/22 14:26 Pulse Rate 88 03/24/22 14:26 Respiratory Rate 18 03/24/22 14:26 Blood Pressure 119/72 03/24/22 14:26 O2 Sat by Pulse Oximetry 100 03/24/22 14:26 Pain Scale Pain Intensity 6 - Physical Exam General Appearance: no apparent distress, alert Eye Exam: PERRL/EOMI, eyes nml inspection Ears, Nose, Throat Exam: normal ENT inspection, TMs normal, pharynx normal, moist mucous membranes Neck Exam: normal inspection, non-tender, supple, full range of motion Respiratory Exam: normal breath sounds, lungs clear, airway intact, No respiratory distress Cardiovascular Exam: regular rate/rhythm, normal heart sounds, normal peripheral pulses Gastrointestinal/Abdomen Exam: soft, normal bowel sounds, No tenderness, No mass Back Exam: normal inspection, normal range of motion, No CVA tenderness, No vertebral tenderness Extremity Exam: normal inspection, normal range of motion, pelvis stable Neurologic Exam: alert, oriented x 3, cooperative, normal mood/affect, nml cerebellar function, nml station & gait, sensation nml, No motor deficits Skin Exam: normal color, warm, dry, No rash Lymphatic Exam: No adenopathy SpO2 Interpretation: normal SpO2: 100 O2 Delivery: Room Air - Course Nursing assessment & vital signs reviewed: Yes - CT Exams Head CT Interpretation: Tele-radiologist Report (CT head no acute intracranial pathology.) - Radiology Ultrasound Exam OB Ultrasound: tele radiology report (IUP 9 weeks 3 days, heart tones 178.) Ordered Tests: Active Orders 24 hr Category Date Time Status HEAD WITHOUT CONTRAST [CT] Stat Exams 03/24/22 15:18 Completed OB <14 WKS 1ST GESTATION [US] Stat Exams 03/24/22 15:13 Completed CBC W DIFF Stat Lab 03/24/22 15:15 Completed CMP Stat Lab 03/24/22 15:15 Completed TSH [TSH, 3RD Generation] Stat Lab 03/24/22 15:15 Completed UA W/RFX UR CULTURE Stat Lab 03/24/22 14:58 Completed Medication Summary Discontinued Medications Generic Name Dose Route Start Last Admin Trade Name Freq PRN Reason Stop Dose Admin Ondansetron HCl 4 mg 03/24/22 14:52 03/24/22 15:01 Zofran 4 Mg/Udtablet Orally Disintegrating PO 03/24/22 14:53 4 mg STAT ONE Administration Ondansetron HCl Confirm 03/24/22 15:00 Zofran 4 Mg/Udtablet Orally Disintegrating Administered 03/24/22 15:01 Dose 4 mg .ROUTE .STK-MED ONE Lab/Rad Data: Laboratory Result Diagrams 03/24/22 15:15 03/24/22 15:15 Laboratory Results 03/24/22 03/24/22 03/24/22 Range/Units 15:15 15:15 15:15 WBC 8.1 (4.0-10.5) x10^3/uL RBC 3.94 L (4.1-5.4) x10^6/uL Hgb 11.9 L (12.0-16.0) g/dL Hct 36.3 (35-47) % MCV 92.1 (78-100) fL MCH 30.2 (26-32) pg MCHC 32.8 (32-36) g/dL RDW 11.5 (11.5-14.0) % Plt Count 239 (150-450) x10^3/uL MPV 10.4 (7.5-11.0) fL Gran % 66.9 H (36.0-66.0) % Immature Gran % (Auto) 0.4 (0.00-0.4) % Nucleat RBC Rel Count 0.0 (0.00-0.1) % Eos # (Auto) 0.07 (0-0.5) x10^3/uL Immature Gran # (Auto) 0.03 (0.00-0.03) x10^3u/L Absolute Lymphs (auto) 1.92 (1.0-4.6) x10^3/uL Absolute Monos (auto) 0.62 (0.0-1.3) x10^3/uL Absolute Nucleated RBC 0.00 (0.00-0.01) x10^3u/L Lymphocytes % 23.6 L (24.0-44.0) % Monocytes % 7.6 (0.0-12.0) % Eosinophils % 0.9 (0.00-5.0) % Basophils % 0.6 (0.0-0.4) % Absolute Granulocytes 5.44 (1.4-6.9) x10^3/uL Basophils # 0.05 (0-0.4) x10^3/uL Sodium 134 L (137-145) mmol/L Potassium 4.0 (3.5-5.1) mmol/L Chloride 104 (98-107) mmol/L Carbon Dioxide 24 (22-30) mmol/L Anion Gap 10.1 (5-15) MEQ/L BUN 8 (7-17) mg/dL Creatinine 0.61 (0.52-1.04) mg/dL Estimated GFR > 60.0 ML/MIN Glucose 92 (74-106) mg/dL Calcium 8.8 (8.4-10.2) mg/dL Total Bilirubin 0.30 (0.2-1.3) mg/dL AST 23 (14-36) U/L ALT 11 (0-35) U/L Alkaline Phosphatase 86 (38-126) U/L Serum Total Protein 7.4 (6.3-8.2) g/dL Albumin 4.2 (3.5-5.0) g/dL TSH 3rd Generation 0.841 (0.47-4.68) mIU/L Urine Color (Yellow) Urine Appearance (Clear) Urine pH (4.6-8.0) Ur Specific [place] (1.005-1.030) Urine Protein (Negative) Urine Glucose (UA) (Negative) mg/dL Urine Ketones (Negative) Urine Blood (Negative) Urine Nitrite (Negative) Urine Bilirubin (Negative) Urine Urobilinogen (0.2) mg/dL Ur Leukocyte Esterase (Negative) U Hyaline Cast (Auto) (0-2) /LPF Urine Microscopic RBC (0-5) /HPF Urine Microscopic WBC (0-5) /HPF Ur Epithelial Cells (None Seen) /HPF Urine Bacteria (None Seen) /HPF Urine Culture Reflexed (NO) Influenza Type A Ag (NEGATIVE) Influenza Type B Ag (NEGATIVE) RSV (PCR) (Negative) SARS-CoV-2 (PCR) (NEGATIVE) 03/24/22 03/24/22 Range/Units 15:15 14:58 WBC (4.0-10.5) x10^3/uL RBC (4.1-5.4) x10^6/uL Hgb (12.0-16.0) g/dL Hct (35-47) % MCV (78-100) fL MCH (26-32) pg MCHC (32-36) g/dL RDW (11.5-14.0) % Plt Count (150-450) x10^3/uL MPV (7.5-11.0) fL Gran % (36.0-66.0) % Immature Gran % (Auto) (0.00-0.4) % Nucleat RBC Rel Count (0.00-0.1) % Eos # (Auto) (0-0.5) x10^3/uL Immature Gran # (Auto) (0.00-0.03) x10^3u/L Absolute Lymphs (auto) (1.0-4.6) x10^3/uL Absolute Monos (auto) (0.0-1.3) x10^3/uL Absolute Nucleated RBC (0.00-0.01) x10^3u/L Lymphocytes % (24.0-44.0) % Monocytes % (0.0-12.0) % Eosinophils % (0.00-5.0) % Basophils % (0.0-0.4) % Absolute Granulocytes (1.4-6.9) x10^3/uL Basophils # (0-0.4) x10^3/uL Sodium (137-145) mmol/L Potassium (3.5-5.1) mmol/L Chloride (98-107) mmol/L Carbon Dioxide (22-30) mmol/L Anion Gap (5-15) MEQ/L BUN (7-17) mg/dL Creatinine (0.52-1.04) mg/dL Estimated GFR ML/MIN Glucose (74-106) mg/dL Calcium (8.4-10.2) mg/dL Total Bilirubin (0.2-1.3) mg/dL AST (14-36) U/L ALT (0-35) U/L Alkaline Phosphatase (38-126) U/L Serum Total Protein (6.3-8.2) g/dL Albumin (3.5-5.0) g/dL TSH 3rd Generation (0.47-4.68) mIU/L Urine Color Yellow (Yellow) Urine Appearance Clear (Clear) Urine pH 7.5 (4.6-8.0) Ur Specific [place] <=1.005 (1.005-1.030) Urine Protein Negative (Negative) Urine Glucose (UA) Negative (Negative) mg/dL Urine Ketones Negative (Negative) Urine Blood Negative (Negative) Urine Nitrite Negative (Negative) Urine Bilirubin Negative (Negative) Urine Urobilinogen 0.2 (0.2) mg/dL Ur Leukocyte Esterase Small A (Negative) U Hyaline Cast (Auto) NONE SEEN (0-2) /LPF Urine Microscopic RBC 0-2 (0-5) /HPF Urine Microscopic WBC 0-2 (0-5) /HPF Ur Epithelial Cells Rare (None Seen) /HPF Urine Bacteria None Seen (None Seen) /HPF Urine Culture Reflexed NO (NO) Influenza Type A Ag NEGATIVE (NEGATIVE) Influenza Type B Ag NEGATIVE (NEGATIVE) RSV (PCR) NEGATIVE (Negative) SARS-CoV-2 (PCR) NEGATIVE (NEGATIVE) - Progress Progress: improved Progress Note: Patient is a 31-year-old female G3, P1 M1 presents emergency department for evaluation of multiple complaints. Patient has been experiencing significant headaches with difficulty with memory. Patient also has been experiencing pelvic cramping. Patient had a pelvic exam with her [employer] doctor recently. Patient not concerned for STI. Patient recently treated for urinary tract infection with Macrobid however patient still complaining of urinary symptomology. Patient has been taking Zofran for nausea is still experiencing some mild nausea. No diarrhea. No rash. No fever. Patient symptoms have been ongoing for approximately 1 week. Symptoms are acute in nature. Symptoms are moderate in complexity. Patient's active may be contributing or complicating patient's current symptomology. Work-up includes a CT head, pelvic ultrasound, CBC CMP, COVID, TSH, UA. CT head negative for acute intracranial pathology. Pelvic ultrasound shows viable IUP, CBC essentially unremarkable. CMP essentially unremarkable. COVID test negative. TSH negative. Urinalysis negative. Patient received Zofran for nausea. Resting comfortably. No active nausea or vomiting at this time. Case discussed with our patient's [employer] physician who agrees with plan of care and disposition. Patient voices no other complaints or concerns at this time. Patient agrees to follow-up with her [employer] physician within 48 hours for reevaluation. Level of EM care service is moderate. Complexity of problems addressed is moderate. Complexity of data reviewed and analyzed is moderate. Risk of complication and or risk of morbidity/mortality of patient management is low. No critical care time. Patient served as an independent historian. Patient reassessed. Patient resting comfortably. Patient tolerated p.o. Patient able to tolerate oral hydration. Time spent during discharge was a pproximately 10 to 15 minutes. Patient voices no other complaints or concerns this time. Portions of this note were created with voice recognition technology. There may be grammatical, spelling, punctuation or sound alike errors 03/24/22 17:02 Discussed with : Bud Will see patient in: office Counseled pt/family regarding: lab results, diagnosis, need for follow-up, rad results Medical Desision Making - Diagnostic Testing Diagnostic Testing: Diagnostic tests were ordered,analyzed, and reviewed by me and used in my medical decision making for this patient. Radiologic studies (if ordered) were read by me initially then discussed with the radiologist . - Departure Departure Disposition: Home Clinical Impression: Nausea/vomiting in , Headache Condition: Stable Critical Care Time: No Referrals: SAMREEN BELL, SENIOR GIS ANALYST [Primary Care Provider] - Follow up/PCP as directed Additional Instructions: Discharge/Care Plan VETO YOON was seen on 03/24/22 in the Emergency Room. The patient was counseled regarding Diagnosis,Lab results, Imaging studies, need for follow up and when to return to the Emergency Room. Prescriptions given: Discharge Note I have spoken with the patient and/or caregivers. I have explained the patient's condition, diagnosis and treatment plan based on the information available to me at this time. I have answered the patient's and/or caregiver's questions and addressed any concerns. The patient and/or caregivers have as good understanding of the patient's diagnosis, condition and treatment plan as can be expected at this point. The vital signs have been stable. The patient's condition is stable and appropriate for discharge from the emergency department. The patient will pursue further outpatient evaluation with the primary care physician or other designated or consulting physician as outlined in the discha rge instructions. The patient and/or caregivers are agreeable to this plan of care and follow-up instructions have been explained in detail. The patient and/or caregivers have received these instruction. The patient/and or caregivers are aware that any significant change in condition or worsening of symptoms should prompt an immediate return to this or the closest emergency department or call 911.
[2022-03-24 15:19] LABS: Absolute Neutrophil Ct (ANC) 5.44 x10^3/uL (1.4-6.9); BASOPHIL % 0.6 % (0.0-0.4); Basophil (Absolute #) 0.05 x10^3/uL (0-0.4); Eosinophil % 0.9 % (0.00-5.0); Eosinophil (Absolute #) 0.07 x10^3/uL (0-0.5); Hematocrit 36.3 % (35-47); Hemoglobin 11.9 g/dL (12.0-16.0); IMMATURE GRAN # 0.03 x10^3u/L (0.00-0.03); IMMATURE GRAN % 0.4 % (0.00-0.4); Lymphocyte (Absolute #) 1.92 x10^3/uL (1.0-4.6); Lymphocytes % 23.6 % (24.0-44.0); Mean Cell Volume 92.1 fL (78-100); Mean Corpuscular Hemoglobin 30.2 pg (26-32); Mean Corpuscular Hgb Concent. 32.8 g/dL (32-36); Mean Platelet Volume 10.4 fL (7.5-11.0); Monocyte (Absolute #) 0.62 x10^3/uL (0.0-1.3); Monocytes % 7.6 % (0.0-12.0); Neutrophil % 66.9 % (36.0-66.0); Platelet Count 239 x10^3/uL (150-450); Red Blood Count 3.94 x10^6/uL (4.1-5.4); Red Cell Distribution Width 11.5 % (11.5-14.0); White Blood Count 8.1 x10^3/uL (4.0-10.5)
[2022-03-24 15:35] LABS: Appearance Clear (Clear); Bacteria None Seen /HPF (None Seen); Bilirubin Negative (Negative); Blood Negative (Negative); Epithelial Cells Rare /HPF (None Seen); Glucose, Urine Negative (Negative); Hyaline Casts NONE SEEN /LPF (0-2); Ketones Negative (Negative); Leukocyte Esterase Small (Negative); Nitrite Negative (Negative); Ph 7.5 (4.6-8.0); Protein,Urine Dip Negative (Negative); RBC 0-2 /HPF (0-5); Specific Gravity <=1.005 (1.005-1.030); Urobilinogen 0.2 mg/dL (0.2); WBC 0-2 /HPF (0-5)
[2022-03-24 15:36] LABS: ADD URINE CULTURE? NO (NO)
[2022-03-24 15:47] LABS: ALBUMIN 4.2 g/dL (3.5-5.0); ALKALINE PHOSPHATASE 86 U/L (38-126); ANION GAP 10.1 MEQ/L (5-15); BLOOD UREA NITROGEN 8 mg/dL (7-17); CHLORIDE 104 mmol/L (98-107); Calcium 8.8 mg/dL (8.4-10.2); Carbon Dioxide 24 mmol/L (22-30); Creatinine 1 0.61 mg/dL (0.52-1.04); EST GLOMERULAR FILTRATION RATE > 60.0 ML/MIN; Glucose 92 mg/dL (74-106); SGOT/AST 23 U/L (14-36); SGPT/ALT 11 U/L (0-35); SODIUM 134 mmol/L (137-145); Total Protein 7.4 g/dL (6.3-8.2)
[2022-03-24 15:55] LABS: INFLUENZA A NEGATIVE (NEGATIVE); INFLUENZA B NEGATIVE (NEGATIVE); RESPIRATORY SYNCTIAL VIRUS NEGATIVE (Negative); SARS-CoV-2 Xpert Express NEGATIVE (NEGATIVE)
--- NOTE | 2022-03-24 16:28 | XRAY ---
Indication: Headache, dizziness, and nausea one week. 9 weeks . Multiple contiguous images obtained through the head without contrast. Comparison: April 28, 2018. Normal appearing brain parenchyma, ventricles, and bony calvarium. Visualized paranasal sinuses and mastoid air cells are pneumatized and clear. Impression: Continued normal CT head without contrast exam.
--- NOTE | 2022-03-24 16:42 | XRAY ---
Indication: viability. Two-dimensional transvaginal early OB ultrasound performed. Comparison: February 15, 2022 Uterus anteverted with now a single intrauterine gestational sac, pole, and yolk sac. Mean crown-rump length measures 2.64 cm corresponding to 9 weeks 3 days. heart rate 178 BPM. No abnormal subchorionic fluid. Left and right ovaries are sonographically unremarkable. No suspicious adnexal mass or free fluid. Impression: Single viable intrauterine measuring 9 weeks 3 days. Expected date confinement is October 24, 2022.
[2022-03-24 17:15] VITALS: BP 118/70; PULSE 78; O2SAT 98
== END 2022-03-24 17:27 | disposition home or self-care (01) ==
LOC: ED 14:12
DX: O21.9 Vomiting of pregnancy, unspecified (principal); Z3A.09 9 weeks gestation of pregnancy; R51.9 Headache, unspecified; M54.9 Dorsalgia, unspecified; R10.2 Pelvic and perineal pain; Z79.84 Long term (current) use of oral hypoglycemic drugs; Z79.899 Other long term (current) drug therapy
CPT/HCPCS: 0241U; 36415; 70450; 76801; 80053; 81001; 84443; 85025; 99283; Q0162

== ENCOUNTER 2022-04-13 08:27 | Day surgery (SDC) | payer BC ==
[2022-04-13] MEDS ORDERED: Lactated Ringers 1,000 ML IV ONE (08:42)
[2022-04-13] MEDS ORDERED: CEFAZOLIN 2 GM-D5W BAG** 2 GM/50 ML ML IV SCH (09:00)
[2022-04-13] MEDS ORDERED: Lactated Ringers 1,000 ML IV SCH (09:00)
[2022-04-13] MEDS ORDERED: SUBLIMAZE 100 MCG/2 ML ONE ×2 (12:04→12:57)
[2022-04-13] MEDS ORDERED: Versed 2 MG/2 ML Injection ONE (12:04)
[2022-04-13] MEDS ORDERED: Xylocaine-Mpf 2% 5 Ml Vial ONE (12:04)
[2022-04-13] MEDS ORDERED: DIPRIVAN 200 MG/20 ML IV ONE (12:04)
[2022-04-13] MEDS ORDERED: Zofran 4 MG/2 ML VIAL ONE (12:04)
[2022-04-13] MEDS ORDERED: Decadron 4 MG INJ ONE (12:04)
[2022-04-13] MEDS ORDERED: TORAdol 30 mg Injection ONE (12:10)
[2022-04-13] MEDS ORDERED: Lactated Ringers 2,000 ML IV ONE (12:27)
--- NOTE | 2022-04-13 13:06 | XRAY ---
Indication: D&C to remove retained products of conception. Limited transabdominal pelvic sonogram was performed prior to and following procedure. Preprocedure images demonstrates a few intrauterine echogenicities presumed retained products of conception. Postprocedure images demonstrates evacuation. Correlate with intraoperative findings/report.
[2022-04-13] MEDS ORDERED: Zofran 4 MG/2 ML VIAL IV STA (13:29)
[2022-04-13 13:49] VITALS: O2SAT 100
[2022-04-13 14:23] VITALS: BP 119/78; PULSE 72
--- NOTE | 2022-04-14 14:04 | OP ---
SURGERY DATE/TIME: 04/13/2022 1208 PREOPERATIVE DIAGNOSIS: Missed with demise at 10 weeks gestation. POSTOPERATIVE DIAGNOSIS: Missed with demise at 10 weeks gestation. PROCEDURE: Suction D&C. SURGEON: Lauri Man D.O. PROCESS TRAINER: Nakita Blanton, surgical coder. ANESTHESIA: General. ESTIMATED BLOOD LOSS: Minimal. COMPLICATIONS: None. INDICATIONS: The risks, benefits, indications and alternatives of the procedure were reviewed with the patient prior to procedure. The patient understood the risk of infection, bleeding, bowel injury, bladder injury, uterine perforation, pelvic infection and thromboembolic disorder associated with this surgery and she desires to have this surgery as a possible means to alleviate her current medical condition. DESCRIPTION OF PROCEDURE AND FINDINGS: At this point the patient is taken to the operating room, given general sedation, placed in dorsal lithotomy position, prepped and draped in the usual sterile fashion. A weighted speculum is then placed in the patient's vagina and the anterior lip of the cervix is grasped with a single tooth tenaculum. Endocervical dilators were advanced through the endocervical canal as a means to dilate the cervix. A #10 curved suction Vacurette was then placed into the endocervical region where under ultrasound guidance from radiology who was able to scan her during procedure. The instrument was placed into the endocervical region where the machine was turned on for suctioning and complete suctioning had taken place without complication retrieving the entire uterine content without complication. After complete suctioning a curette was then placed into the fundus of the uterus where curettage was performed in all quadrants of the uterus retrieving the remaining tissue. Again, hemostasis was noted. Under ultrasound guidance there was no tissue that was noted to be left behind. From this point all instruments were removed from the patient's vaginal region. The patient was taken out of the dorsal lithotomy position and was then taken to the recovery room in stable condition. All instruments and laps were accounted for x2.
== END 2022-04-13 14:20 | disposition home or self-care (01) ==
LOC: SDC 08:27
PROVIDERS: ATTEND Obstetrics & Gynecology
DX: O02.1 Missed abortion (principal)
CPT/HCPCS: 36415; 76816; 86900; 86901; J0690; J1100; J1885; J2250; J2405; J2704; J3010